=== PATIENT | female | born 1955 | race Two or more races ===

== ENCOUNTER 2024-04-25 16:50 | Emergency (ER) | payer OTHER ==
[~2024-04-25] VITALS: Ht 152.4 cm; Wt 56.4 kg
[2024-04-25 17:05] VITALS: TEMP 98.6
[2024-04-25] MEDS ORDERED: DAPA5TAB PO (17:09)
[2024-04-25] MEDS ORDERED: ENAL-87 PO (17:09)
[2024-04-25] MEDS ORDERED: LEVO88TA7 PO (17:09)
[2024-04-25] MEDS ORDERED: LINA5TAB PO (17:09)
[2024-04-25] MEDS: PROPARACAINE HCL 0.5% 15 ML OPHTHALMIC SOLUTION OD ONE (21:48)
[2024-04-25] MEDS: FLUORESCEIN SODIUM 1 MG STRIP OD ONE (21:58)
[2024-04-25 22:23] VITALS: BP 163/77; PULSE 57; RESP 18; O2SAT 98
== END 2024-04-25 22:39 | disposition home or self-care (01) ==
LOC: EMS 16:50
DX: H57.8A1 Foreign body sensation, right eye (principal); R51.9 Headache, unspecified; I10 Essential (primary) hypertension; E11.9 Type 2 diabetes mellitus without complications; F17.210 Nicotine dependence, cigarettes, uncomplicated; Z79.84 Long term (current) use of oral hypoglycemic drugs; Z79.899 Other long term (current) drug therapy
CPT/HCPCS: 82962; 99284; J9035; Z7502; Z7610